=== PATIENT | male | born 1985 | race Caucasian/White ===

== ENCOUNTER 2024-05-15 14:54 | Emergency (ER) | payer SELFPAY ==
[2024-05-15 14:56] VITALS: BP 153/140; PULSE 125; RESP 18; TEMP 36.8; O2SAT 96; BMI 22.6
[2024-05-15 15:00] VITALS: BP 117/96; PULSE 123; RESP 18; O2SAT 95
--- NOTE | 2024-05-15 15:07 | XR_ITS ---
WS: [id number] Exam: XR chest 1V portable [id number] Date/Time of Exam: 05/15/2024 3:11 PM Reason For Exam: chest pain No priors. The lungs are fully inflated and clear. Normal cardiomediastinal silhouette. No pleural effusions. [place] structures are intact. XR/XR chest 1V portable [id number] IMPRESSION: 1. No acute cardiopulmonary finding.
--- NOTE | 2024-05-15 15:07 | ECG_ITS ---
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 Measurements Intervals [place] Rate: 123 P: 81 MD: 141 QRS: 201 QRSD: 84 T: 61 QT: 309 QTc: 443 Interpretive Statements SINUS TACHYCARDIA POSSIBLE RIGHT VENTRICULAR HYPERTROPHY [SOME/ALL OF: PROMINENT R IN V1, LATE TRANSITION, RAD, JIMY, SSS] No previous ECG available for comparison Electronically Signed On 05-16-2024 8:09:45 CDT by Hunter Vargas M.D. [id number]
--- NOTE | 2024-05-15 15:18 | CTR_ITS ---
PROCEDURE INFORMATION: Exam: CT Thoracic Spine Without Contrast Exam date and time: 05/15/2024 3:36 PM Age: 39 years old Clinical indication: Pain in thoracic spine; Patient HX: Weakness and numbness. Patient states that he was walking in his cell when his left leg became completely numb. He sat down but then became weak and numb to all of left side. ; Additional info: Pain with left sided neuropathy TECHNIQUE: Imaging protocol: Computed tomography of the thoracic spine without contrast. Radiation optimization: All CT scans at this facility use at least one of these dose optimization techniques: automated exposure control; mA and/or kV adjustment per patient size (includes targeted exams where dose is matched to clinical indication); or iterative reconstruction. COMPARISON: CT lumbar spine wo con* [id number] 05/15/2024 3:36 PM RADIATION DOSE METRICS: Total DLP (mGy-cm): 742.61 FINDINGS: Bones/joints: No acute fracture. Normal alignment. No significant disc bulge or herniation. No severe spinal canal stenosis. No significant neural foraminal narrowing. Soft tissues: Unremarkable. CT/CT thoracic spin wo con* [id number] IMPRESSION: No acute findings.
--- NOTE | 2024-05-15 15:18 | CTR_ITS ---
PROCEDURE INFORMATION: Exam: CT Lumbar Spine Without Contrast Exam date and time: 05/15/2024 3:36 PM Age: 39 years old Clinical indication: Low back pain; Patient HX: Weakness and numbness. Patient states that he was walking in his cell when his left leg became completely numb. Patient states that he sat down but then became weak and numb to all of left side. ; Additional info: Pain / neuropathy TECHNIQUE: Imaging protocol: Computed tomography of the lumbar spine without contrast. Radiation optimization: All CT scans at this facility use at least one of these dose optimization techniques: automated exposure control; mA and/or kV adjustment per patient size (includes targeted exams where dose is matched to clinical indication); or iterative reconstruction. COMPARISON: CT thoracic spin wo con* [id number] 05/15/2024 3:36 PM RADIATION DOSE METRICS: Total DLP (mGy-cm): 742.61 FINDINGS: Bones/joints: No acute fracture. Normal alignment. No significant disc bulge or herniation. No severe spinal canal stenosis. No significant neural foraminal narrowing. Soft tissues: Unremarkable. CT/CT lumbar spine wo con* [id number] IMPRESSION: No acute findings.
[2024-05-15 15:28] LABS: Basophils # 0.1 10^3/uL (0.0-0.1); Basophils % 0.5 %; Eosinophils % 0.3 %; Hematocrit 50.2 % (37-53); Lymphocytes # 2.4 10^3/uL (0.8-4.8); Lymphocytes % 23.6 %; Mean Corpuscular HGB Conc 34.7 g/dL (30-55); Mean Corpuscular Hemoglobin 29.8 pg (27-33); Mean Corpuscular Volume 86.1 fl (82-101); Mean Platelet Volume 10.5 fL (7.4-10.4); Monocytes # 0.6 10^3/uL (0.2-0.9); Monocytes % 5.7 %; Neutrophils # 7.04 10^3/uL (1.8-7.7); Neutrophils % 69.7 %; Nucleated Red Blood Cells % 0 %; Platelet Count 262 10^3/cmm (157-399); Red Blood Count 5.83 10^6/uL (3.85-5.65); Red Cell Distribution Width 12.2 % (12.1-15.1)
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
[2024-05-15 15:46] LABS: Troponin(5th) Baseline 12 ng/L (0-15)
[2024-05-15] MEDS: ketorolac 30 mg/mL INJ IVP (15:47)
[2024-05-15] MEDS: methylPREDNISolone sod succ 125 mg/2 mL INJ 60 MG IVP (15:47)
[2024-05-15] MEDS: sodium chloride 0.9% 1,000 ML 999 ML IV (15:51)
[2024-05-15 15:56] LABS: Alanine Aminotransferase 20 U/L (0-41); Albumin Level 4.6 g/dL (3.5-5.2); Alkaline Phosphatase 114 U/L (40-130); Anion Gap 27.1 (5-19); Aspartate Amino Transferase 35 U/L (0-40); Blood Urea Nitrogen 11 mg/dL (6-20); Calcium 9.8 mg/dL (8.5-10.5); Carbon Dioxide 16 mmol/L (22-29); Chloride 96 mmol/L (98-107); Creatinine Clr Calc Pharmacy 80.4056; Globulin 2.8 g/dL (1.3-4.6); Glomerular Filtration Rate 74.1 mL/min (90-130); Glucose 62 mg/dL (65-115); NT Pro B Type Natriuretic Pept 61 pg/mL (0-125); Osmolality Calculated 277 mOsm/kg (285-295); Potassium 4.1 mmol/L (3.5-5.1); Sodium 135 mmol/L (136-145); Total Bilirubin 0.6 mg/dL (0.15-1.2); Total Protein 7.4 g/dL (6.6-8.7)
[2024-05-15] MEDS: ondansetron 2 mg/ML SDV 2 mL 4 MG IVP (16:23)
[2024-05-15 16:24] LABS: Add Urine Microscopic? NO; Charge for UA Resulting for Rev
[2024-05-15 16:32] LABS: Bilirubin Urine Neg (Negative); Blood Urine Neg (Negative); Glucose Urine UA Norm (Normal); Ketones Urine 2+ (Negative); Leukocyte Esterase Urine Negative (Negative); Nitrate Urine Negative (Negative); Protein Urine Neg (Negative); Urine Appearance Clear (CLEAR); Urine Color Yellow (Yellow); Urobilinogen Urine Norm (Negative); pH Urine 5 (5-7)
[2024-05-15 16:35] LABS: Amphetamines Screen Urine Negative (Negative); Barbiturates Screen Urine Negative (Negative); Benzodiazepines Screen Urine Negative (Negative); Cocaine Screen Urine Negative (Negative); Opiate Screen Urine Negative (Negative); PCP Screen Urine Negative (Negative); THC Screen Urine Negative (Negative)
--- NOTE | 2024-05-15 17:03 | CTR_ITS ---
PROCEDURE INFORMATION: Exam: CTA Chest With Contrast Exam date and time: 05/15/2024 5:08 PM Age: 39 years old Clinical indication: Pain; Chest pressure and radiating; Additional info: Chest pain radiating to the back TECHNIQUE: Imaging protocol: Computed tomographic angiography of the chest with contrast. Exam focused on the arteries. 3D rendering (Not supervised by radiologist): MIP and/or 3D reconstructed images were created by the technologist. Radiation optimization: All CT scans at this facility use at least one of these dose optimization techniques: automated exposure control; mA and/or kV adjustment per patient size (includes targeted exams where dose is matched to clinical indication); or iterative reconstruction. Contrast material: OMNI 350; Contrast volume: 65 ml; Contrast route: INTRAVENOUS (IV); COMPARISON: CR XR chest 1V portable [id number] 05/15/2024 3:16 PM RADIATION DOSE METRICS: Total DLP (mGy-cm): 218.51 FINDINGS: Pulmonary arteries: Normal. No pulmonary emboli. Aorta: Unremarkable. No aortic aneurysm. No aortic dissection. Lungs: Unremarkable. No consolidation. No masses. Pleural spaces: Unremarkable. No pneumothorax. No pleural effusion. Heart: Unremarkable. No cardiomegaly. No pericardial effusion. Lymph nodes: Unremarkable. No enlarged lymph nodes. Bones/joints: Unremarkable. No acute fracture. Soft tissues: Unremarkable. CT/CT angio chest PE protcl [id number] IMPRESSION: No acute findings. Negative for pulmonary embolism or aortic dissection.
[2024-05-15 17:06] VITALS: BP 135/105; PULSE 87; RESP 23; O2SAT 93
[2024-05-15] MEDS: iohexol 350 mg/mL 500 mL Btl (per mL) IV (17:10)
--- NOTE | 2024-05-15 17:22 | ECG_ITS ---
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 Measurements Intervals [place] Rate: 93 P: 70 MA: 139 QRS: 100 QRSD: 97 T: 54 QT: 369 QTc: 460 Interpretive Statements SINUS RHYTHM INDETERMINATE AXIS INCOMPLETE RIGHT BUNDLE BRANCH BLOCK [90+ ms QRS DURATION, TERMINAL R IN V1/V2, 40+ ms S IN I/aVL/V4/V5/V6] Compared to ECG 05/15/2024 14:50:59 Indeterminate axis now present Incomplete right bundle-branch block now present Sinus tachycardia no longer present Atrial abnormality no longer present Electronically Signed On 05-16-2024 8:11:45 CDT by Hunter Vargas M.D. [id number]
[2024-05-15 18:16] VITALS: BP 154/94; PULSE 92; RESP 22; O2SAT 93
== END 2024-05-15 18:58 | disposition home or self-care (01) ==
PROVIDERS: Emergency Provider Emergency Medicine
DX: R07.89 Other chest pain (principal); M54.16 Radiculopathy, lumbar region
CPT/HCPCS: 71045; 71275; 72128; 72131; 80053; 80306; 81003; 83880; 84484; 85025; 93005; 96374; 96375; 99285; J1885; J2405; J2919; J7030; Q9967